=== PATIENT | female | born 1975 | race American Indian/Alaskan Native ===

== ENCOUNTER 2016-12-05 14:16 | Outpatient (CLI) | payer OTHER ==
--- NOTE | 2016-12-05 15:28 | Mammography Report ---
Bilateral mammogram: No previous studies available. CAD study utilized. Findings: Focal dense asymmetry noted in the upper right breast and outer left breast. No microcalcification is seen. No distinct mass is noted. Benign axillary nodes. Impression: Focal asymmetry right and left breast. Comparison with previous studies is recommended. If previous studies are not available spot mag and sonographic examination advised. BI-RADS CATEGORY: 0 = Needs additional imaging evaluation ACR BI-RADS MAMMOGRAPHIC CODES: 0 = Needs additional imaging evaluation; 1 = Negative; 2 = Benign; 3 = Probably benign; 4 = Suspicious; 5 = Malignant; 6 = Known biopsy-proven malignancy COMMENT: 1. Dense breast tissue, i.e., adenosis, fibrocystic changes, etc., may obscure an underlying neoplasm. 2. Approximately 10% of cancers are not detected with mammography. 3. A negative mammography report should not delay biopsy if a clinically suspicious mass is present. COMMENT: Patient follow-up letters are generated in [employer]. A
== END 2016-12-05 14:17 | disposition home or self-care (01) ==
LOC: MERGE 14:16 → MAMMO 14:16
PROVIDERS: ATTEND Hospitalist
DX: Z12.31 Encounter for screening mammogram for malignant neoplasm of breast (principal)
CPT/HCPCS: 77067; G0202

== ENCOUNTER 2017-01-18 13:11 | Outpatient (CLI) | payer OTHER ==
--- NOTE | 2017-01-18 14:24 | Mammography Report ---
Spot compression magnification and sonogram of focal asymmetry upper anterior right breast and mid outer left breast: Findings: There is persistence of asymmetry noted at the right and left breast however no discrete mass or microcalcification seen. Sonographic examination reveals no cystic or solid mass. Impression: Benign findings. Annual followup with mammogram recommended. BI-RADS CATEGORY: 2 = Benign ACR BI-RADS MAMMOGRAPHIC CODES: 0 = Needs additional imaging evaluation; 1 = Negative; 2 = Benign; 3 = Probably benign; 4 = Suspicious; 5 = Malignant; 6 = Known biopsy-proven malignancy COMMENT: 1. Dense breast tissue, i.e., adenosis, fibrocystic changes, etc., may obscure an underlying neoplasm. 2. Approximately 10% of cancers are not detected with mammography. 3. A negative mammography report should not delay biopsy if a clinically suspicious mass is present. COMMENT: Patient follow-up letters are generated in [employer].
== END 2017-01-18 13:12 | disposition home or self-care (01) ==
LOC: MAMMO 13:11
PROVIDERS: ATTEND Hospitalist
DX: R92.8 Other abnormal and inconclusive findings on diagnostic imaging of breast (principal)
CPT/HCPCS: 76642; G0204; 77066

== ENCOUNTER 2017-03-08 09:48 | Emergency (ER) | payer OTHER ==
[2017-03-08 10:25] LABS: Basophils % (Auto) 0.8 % (0.0-1.8); Hematocrit 34.9 % (30.3-42.9); Hemoglobin 10.8 gm/dl (10.1-14.3); Mean Corpuscular HGB Conc 31 % (30-34); Mean Corpuscular Hemoglobin 22 pg (28-32); Mean Corpuscular Volume 71 fl (79-97); Platelet Count 305 K/mm3 (140-440); Red Blood Count 4.95 M/mm3 (3.65-5.03); Red Cell Distribution Width 18.4 % (13.2-15.2)
[2017-03-08 10:43] LABS: Anion Gap 15 mmol/L; BUN/Creatinine Ratio 11.66; Blood Urea Nitrogen 7 mg/dL (7-17); Calcium 8.7 mg/dL (8.4-10.2); Carbon Dioxide 24 mmol/L (22-30); Chloride 101.2 mmol/L (98-107); Glucose 107 mg/dL (65-100); Potassium 3.5 mmol/L (3.6-5.0); Sodium 137 mmol/L (137-145)
--- NOTE | 2017-03-08 15:39 | Emergency Department Report ---
ED General Adult HPI - General Chief complaint: Chest Pain Stated complaint: CHEST PAIN Time Seen by Provider: 03/08/17 15:13 Source: patient, RN notes reviewed, old records reviewed Mode of arrival: Ambulatory Limitations: No Limitations - History of Present Illness Initial comments: This is a 41-year-old female. She is previously unknown to me. Her primary care doctor is Dr. Bryant. She has a follow-up appointment this Sunday, at 2:00 PM, with [place] [facility]. The patient is currently being worked up for nonspecific renal mass demonstrated on MRI in 2016, she supposed to have a biopsy next week at [place] , it may be renal cell carcinoma. Patient does not know. The patient presents to the ER with left-sided chest wall pressure. The pressure has been present intermittently since November. It does not radiate to the back, arms or neck. There is no diaphoresis. There is no vomiting, but the patient describes intermittent nausea. The patient describes chronic shortness of breath since November. There is no leg pain. There is no leg swelling. No recent trips greater than 4 hours. No recent hospital admissions. Patient reports onset of palpitations intermittently since Sunday. These are intermittent. Have no exacerbating or relieving factors. Patient indicates that her symptoms have no other exacerbating or relieving factors. -: Gradual Location: chest Severity scale (0 -10): 7 Consistency: intermittent Improves with: none Worsens with: none Associated Symptoms: chest pain, shortness of breath - Related Data Home Medications Medication Instructions Recorded Confirmed Last Taken ALBUTEROL Inhaler [ProAir HFA 2 inhalation PO PRN PRN 03/08/17 03/08/17 Unknown Inhaler] Fluticasone/Vilanterol [Breo 2 inhalation PO PRN PRN 03/08/17 03/08/17 Unknown Ellipta 100-25 Mcg INH] Allergies Allergy/AdvReac Type Severity Reaction Status Date / Time No Known Allergies Allergy Verified 10/15/16 06:09 ED Review of Systems ROS: Stated complaint: CHEST PAIN Other details as noted in HPI Constitutional: denies: fever Eyes: denies: vision change ENT: denies: congestion Respiratory: shortness of breath Cardiovascular: chest pain Gastrointestinal: denies: abdominal pain Genitourinary: as per HPI Musculoskeletal: as per HPI Skin: denies: lesions Neurological: denies: weakness Psychiatric: anxiety ED Past Medical Hx - Past Medical History Additional medical history: Cyst on Kidney - Surgical History Past Surgical History?: No - Social History Smoking Status: Never Smoker Substance Use Type: Alcohol - Medications Home Medications: Home Medications Medication Instructions Recorded Confirmed Last Taken Type ALBUTEROL Inhaler [ProAir HFA 2 inhalation PO PRN PRN 03/08/17 03/08/17 Unknown History Inhaler] Fluticasone/Vilanterol [Breo 2 inhalation PO PRN PRN 03/08/17 03/08/17 Unknown History Ellipta 100-25 Mcg INH] ED Physical Exam - General Limitations: No Limitations General appearance: alert, in no apparent distress, anxious - Head Head exam: Present: atraumatic, normocephalic - Eye Eye exam: Present: normal appearance, PERRL, EOMI. Absent: nystagmus - ENT ENT exam: Present: normal exam, normal orophraynx, mucous membranes moist, normal external ear exam - Neck Neck exam: Present: normal inspection, full ROM. Absent: tenderness, meningismus - Respiratory Respiratory exam: Present: normal lung sounds bilaterally, chest wall tenderness (there is mild left lateral chest wall tenderness, with bilateral breast exam unremarkable. During the breast examination, I am escorted by nurse Leo Corrales. There is no redness, pus, streaking or crepitus.), other. Absent: respiratory distress, wheezes, rales, rhonchi, stridor, accessory muscle use, decreased breath sounds, prolonged expiratory - Cardiovascular Cardiovascular Exam: Present: regular rate, normal rhythm, normal heart sounds. Absent: bradycardia, tachycardia, irregular rhythm, systolic murmur, diastolic murmur, rubs, gallop - GI/Abdominal GI/Abdominal exam: Present: soft, normal bowel sounds. Absent: distended, tenderness, guarding, rebound, rigid, pulsatile mass - Extremities Exam Extremities exam: Present: normal inspection, full ROM, normal capillary refill. Absent: tenderness, pedal edema, joint swelling, calf tenderness - Back Exam Back exam: Present: normal inspection, full ROM. Absent: tenderness, CVA tenderness (R), CVA tenderness (L), muscle spasm, paraspinal tenderness, vertebral tenderness - Neurological Exam Neurological exam: Present: alert, oriented X3, normal gait, other (Extraocular movements intact. Tongue midline. No facial droop. Facial sensation intact to light touch in the V1, V2, V3 distribution bilaterally. 5 and 5 strength in 4 extremities.. Sensation is intact to light touch in 4 extremities.). Absent : motor sensory deficit - Psychiatric Psychiatric exam: Present: normal affect, normal mood - Skin Skin exam: Present: warm, dry, intact, normal color. Absent: rash ED Course Vital Signs 03/08/17 03/08/17 03/08/17 10:06 13:54 14:04 Temperature 98.2 F Pulse Rate 76 81 Respiratory 18 12 Rate Blood Pressure 138/89 144/92 Blood Pressure [Left] O2 Sat by Pulse 100 99 65 L Oximetry 03/08/17 03/08/17 03/08/17 14:10 14:20 14:27 Temperature 98.1 F Pulse Rate 84 86 90 Respiratory 22 24 24 Rate Blood Pressure 144/92 137/88 Blood Pressure 137/88 [Left] O2 Sat by Pulse 100 99 100 Oximetry 03/08/17 03/08/17 03/08/17 14:28 14:30 14:40 Temperature Pulse Rate 97 H 81 Respiratory 16 20 18 Rate Blood Pressure 134/66 134/66 Blood Pressure [Left] O2 Sat by Pulse 100 99 97 Oximetry 03/08/17 03/08/17 03/08/17 14:50 15:00 15:10 Temperature Pulse Rate 108 H 84 79 Respiratory 16 17 17 Rate Blood Pressure 131/81 133/77 133/77 Blood Pressure [Left] O2 Sat by Pulse 98 98 99 Oximetry 03/08/17 03/08/17 03/08/17 15:20 15:30 15:40 Temperature Pulse Rate 78 93 H Respiratory 18 41 H 18 Rate Blood Pressure 127/77 152/94 152/94 Blood Pressure [Left] O2 Sat by Pulse 99 99 98 Oximetry 03/08/17 03/08/17 03/08/17 15:50 16:00 16:10 Temperature Pulse Rate Respiratory 19 20 19 Rate Blood Pressure 152/94 118/75 118/75 Blood Pressure [Left] O2 Sat by Pulse 98 98 97 Oximetry 03/08/17 03/08/17 03/08/17 16:20 16:30 16:40 Temperature Pulse Rate Respiratory 16 23 18 Rate Blood Pressure 120/75 112/71 112/71 Blood Pressure [Left] O2 Sat by Pulse 99 99 99 Oximetry 03/08/17 03/08/1717 16:50 17:00 17:19 Temperature Pulse Rate 92 H Respiratory 18 13 Rate Blood Pressure 117/73 114/75 114/75 Blood Pressure [Left] O2 Sat by Pulse 99 98 Oximetry 03/08/17 03/08/17 03/08/17 17:20 17:30 17:58 Temperature Pulse Rate 97 H 89 98 H Respiratory 25 H 28 H 11 L Rate Blood Pressure 114/75 114/75 114/75 Blood Pressure [Left] O2 Sat by Pulse 100 94 100 Oximetry 03/08/17 03/08/17 03/08/17 18:00 18:10 18:20 Temperature Pulse Rate 96 H 124 H Respiratory 17 18 20 Rate Blood Pressure 114/75 140/72 114/75 Blood Pressure [Left] O2 Sat by Pulse 99 98 93 Oximetry 03/08/17 18:35 Temperature Pulse Rate 95 H Respiratory 22 Rate Blood Pressure Blood Pressure 140/72 [Left] O2 Sat by Pulse 99 Oximetry - Reevaluation(s) Reevaluation #1: 03/08/17 15:43 Differential diagnosis: Costochondritis, pneumonia, acute coronary syndrome, pulmonary embolus, anxiety Assessment and plan: 41-year-old female with atypical chest pain, palpitations. May have renal cell carcinoma, a tissue diagnosis is pending. The patient is low risk by ADE score, low risk by heart score, troponins are negative 2. EKG is abnormal, today's EKG is essentially unchanged from prior EKG. The patient has follow-up with a senior net web developer next week. I find the patient to be low risk by well's criteria, a d-dimer sent to risk stratify the patient for pulmonary embolus. X-ray of the chest is ordered. The test is ordered. Reevaluation #2: 03/08/17 18:27 CT scan of the chest is negative. Patient reassessed. Resting comfortably. Has cardiology follow-up with an appropriate timeframe. Symptoms are subacute to chronic. She is suitable for discharge at this time, she is instructed to follow up with outpatient cardiology next week. Reevaluation #3: 03/08/17 18:38 The patient reports that her drying room supervisor, Dr. Silva is aware of the granulomatous disease and she is currently being worked up on outpatient basis for sarcoid. ED Medical Decision Making - Lab Data Result diagrams: 03/08/17 10:14 03/08/17 10:14 Vital Signs 03/08/17 03/08/17 03/08/17 10:06 14:27 14:28 Temperature 98.2 F 98.1 F Pulse Rate 76 90 Respiratory 18 24 16 Rate Blood Pressure 138/89 Blood Pressure 137/88 [Left] O2 Sat by Pulse 100 100 100 Oximetry Labs 03/08/17 03/08/17 03/08/17 10:14 10:14 13:10 WBC 8.0 RBC 4.95 Hgb 10.8 Hct 34.9 MCV 71 L MCH 22 L MCHC 31 RDW 18.4 H Plt Count 305 Lymph % (Auto) 24.4 Calhoun % (Auto) 5.6 Eos % (Auto) 1.0 Baso % (Auto) 0.8 Lymph # 2.0 Calhoun # 0.4 Eos # 0.1 Baso # 0.1 Seg Neutrophils % 68.2 Seg Neutrophils # 5.5 Sodium 137 Potassium 3.5 L Chloride 101.2 Carbon Dioxide 24 Anion Gap 15 BUN 7 Creatinine 0.6 L Estimated GFR > 60 BUN/Creatinine Ratio 11.66 Glucose 107 H Calcium 8.7 Troponin T < 0.010 < 0.010 - EKG Data -: EKG Interpreted by Ok EKG shows normal: sinus rhythm Rate: normal - EKG Data When compared to previous EKG there are: no significant change 03/08/17 15:44 EKG #1: Normal sinus, 82 bpm, QTC 427 ms, normal axis, normal intervals, poor r wave progression, borderline left ventricular hypertrophy, appears essentially unchanged from prior EKG from October 2016. EKG #2 demonstrates normal sinus, 79 beats per minute, left ventricular hypertrophy, left axis deviation, persistent poor r wave progression. Not consistent with STEMI. 03/08/17 15:46 - Radiology Data Radiology results: pending, report reviewed, image reviewed CT scan of the chest is negative. X-ray of the chest is negative. Incidental granulomatous disease is noted. Critical care attestation.: If time is entered above; I have spent that time in minutes in the direct care of this critically ill patient, excluding procedure time. ED Disposition Clinical Impression: Chest pain, Abnormal EKG Disposition: DISCHARGED TO HOME OR SELFCARE Is pt being admited?: No Does the pt Need Aspirin: No Condition: Stable Instructions: Chest Pain (ED) Additional Instructions: Continue current outpatient prescription medications. Follow-up with your cardiology appointment next week as scheduled. I have listed to the local cardiologists that particular group for your convenience. Return to the ER right away with new pain, worsened pain, migration of pain, fevers or chills, intractable nausea or vomiting, inability to tolerate liquid feeds. Laboratory studies were unremarkable, EKG was unchanged from prior EKG, CT scan of the chest did not show blood clot in the lungs, collapsed lung or pneumonia. Old granulomas are noted, this can be followed up by her primary care doctor. Referrals: PRIMARY MD BELTRAN [Primary Care Provider] - 3-5 Days ONUR BRAXTON MD [Staff Physician] - 3-5 Days SAE LUO MD [Staff Physician] - 3-5 Days
[2017-03-08 16:14] LABS: Partial Thromboplastin Time 29.7 Sec. (24.2-36.6)
[2017-03-08] MEDS ORDERED: TORADOL IV ONE (17:12)
[2017-03-08] MEDS ORDERED: NACL 0.9% 1000 ML 1,000 ML IV ONE (17:12)
[2017-03-08] MEDS ORDERED: NACL ONE (17:18)
--- NOTE | 2017-03-08 18:09 | Cat Scan Report ---
FINAL REPORT PROCEDURE: CT angiography of the chest TECHNIQUE: Computerized tomographic angiography of the chest was performed during the IV injection of iodinated nonionic contrast including image processing. The image data was postprocessed using 2-dimensional multiplanar reformatted (MPR) and 3-dimensional (MIP and/or volume rendered) techniques. HISTORY: Chest pain. Short of breath. Evaluate pulmonary embolus COMPARISON: No prior studies are available for comparison. FINDINGS: Pulmonary outflow tract, right and left main pulmonary arteries and their proximal branches: Clear, no filling defects seen to suggest pulmonary embolus. Pericardium: No evidence of pericardial effusion. Thoracic aorta: No evidence of aneurysmal dilatation or dissection. Coronary arteries: Are unremarkable. Mediastinum and hilar regions: Nonspecific subcentimeter lymph nodes are visualized. No pathologically enlarged lymph nodes or masses are identified. Lung Mancini: Small calcified granuloma is seen anteriorly inferiorly in the right lower lobe. Lungs otherwise are clear. Upper abdomen: Minimal diverticulosis seen in the hepatic flexure. Visualized bowel loops otherwise are unremarkable. Other: No acute bony abnormalities are identified. IMPRESSION: No evidence of pulmonary embolus. Prior granulomatous disease. Colonic diverticulosis as described. No other abnormalities are seen.
[2017-03-08 18:51] VITALS: BP 140/92
--- NOTE | 2017-03-09 07:20 | XRay Report ---
Chest 2 views: History: Chest pain. Findings: Normal cardiomediastinal silhouette. Trachea is midline. No consolidation, pneumothorax or pleural effusion. Impression: No acute cardiopulmonary findings.
== END 2017-03-08 19:12 | disposition home or self-care (01) ==
LOC: ED 09:48
DX: R07.89 Other chest pain (principal); R94.31 Abnormal electrocardiogram [ECG] [EKG]
CPT/HCPCS: 36415; 71020; 71275; 80048; 84484; 84702; 85025; 85379; 85610; 85730; 93005; 93010; 96361; 96374; 99285; J1885; J7030; Q9967

== ENCOUNTER 2017-05-13 14:47 | Emergency (ER) | payer OTHER ==
[2017-05-13 15:07] VITALS: BP 139/91
[2017-05-13 15:31] LABS: Basophils % (Auto) 0.6 % (0.0-1.8); Eosinophils % (Auto) 0.1 % (0.0-4.3); Hematocrit 38.3 % (30.3-42.9); Mean Corpuscular HGB Conc 31 % (30-34); Mean Corpuscular Volume 71 fl (79-97); Platelet Count 346 K/mm3 (140-440); Red Blood Count 5.38 M/mm3 (3.65-5.03); Red Cell Distribution Width 19.7 % (13.2-15.2); White Blood Count 9.4 K/mm3 (4.5-11.0)
[2017-05-13 15:35] LABS: Mean Corpuscular Hemoglobin 22 pg (28-32)
[2017-05-13 15:43] LABS: Anion Gap 17 mmol/L; Blood Urea Nitrogen 7 mg/dL (7-17); Calcium 8.8 mg/dL (8.4-10.2); Carbon Dioxide 24 mmol/L (22-30); Chloride 101.5 mmol/L (98-107); Glucose 107 mg/dL (65-100); Potassium 3.8 mmol/L (3.6-5.0); Sodium 139 mmol/L (137-145)
[2017-05-13 15:55] LABS: Bacteria,Urine 1+ /HPF (Negative); Bilirubin,Urine NEG (Negative); Blood,Urine NEG (Negative); Ketones,Urine NEG (Negative); Leukocyte Esterase,Urine NEG (Negative); Mucus,Urine FEW /HPF; Nitrite,Urine NEG (Negative); Protein,Urine <15 mg/dL mg/dL (Negative); Urobilinogen,Urine < 2.0 mg/dL (<2.0)
--- NOTE | 2017-05-13 16:52 | Cat Scan Report ---
FINAL REPORT PROCEDURE: CT ABDOMEN PELVIS WO CON TECHNIQUE: Computerized axial tomography of the abdomen and pelvis was performed without intravenous contrast. This study is performed without intravascular contrast material and its sensitivity for abdominal and pelvic pathology, including neoplasms, inflammation, abscess, free fluid, thrombosis, arterial dissection and infarction, is reduced compared with a contrast enhanced study. HISTORY: LEFT FLANK PAIN ; POSSIBLE STONE COMPARISON: No prior studies are available for comparison. FINDINGS: Visualized lower thorax: No significant abnormality. Liver: Mild diffuse low attenuation of the liver suggests fatty infiltration. Spleen: Normal size and attenuation. Gallbladder and biliary system: Normal. Pancreas: Normal. Adrenals: Normal. Kidneys: No hydronephrosis or renal calculi are seen. Along the course of the distal left ureter there is a focal calcification which is favored to be related to a phlebolith, as no proximal obstruction is noted. There are mild asymmetric left perinephric strandy changes. Cannot exclude inflammations/pyelonephritis.. GI tract: The appendix is visualized and does not appear inflamed. No evidence of bowel obstruction or acute inflammation. Lymph nodes and mesentery: Normal. Vasculature: Normal. Bladder: Normal. Reproductive organs: Within the right pelvis there is a circumscribed low-density structure which is likely related to a multi-septated cyst. This measures 5.0 x 3.1 x 3.3 centimeters. Peritoneum: Trace free fluid in the pelvis is likely physiologic. Musculoskeletal structures: Degenerative disc changes of the lower lumbar spine. Other: None. IMPRESSION: Asymmetric left perinephric strandy changes may be related to inflammation/pyelonephritis. No hydronephrosis bilaterally. No renal calculi are seen. Calcifications in the pelvis are favored to be related to phleboliths rather than ureteral calculi, as there is no proximal ureteral dilatation. Complex 5 centimeter cystic lesion in the right pelvis is likely related to the right ovary. Recommend follow-up.
[2017-05-13] MEDS ORDERED: LEVAQUIN PO ONE (21:00)
[2017-05-13] MEDS ORDERED: TORADOL IM ONE (21:00)
--- NOTE | 2017-05-13 21:01 | Emergency Department Report ---
ED Abdominal Pain HPI - General Chief Complaint: Abdominal Pain Stated Complaint: BACK PAIN/KIDNEY AREA Time Seen by Provider: 05/13/17 20:54 Source: patient Mode of arrival: Ambulatory Limitations: No Limitations - History of Present Illness Initial Comments: 41-year-old female with past medical history sarcoid presenting to the ED complaining of left sided flank pain. Onset of symptoms started 2 days prior. Patient states she was exercising prior to onset of pain. Patient states pain is located left flank area and nonradiating, no relaxing or worsening factors. Patient denies: Fever/chills, chest pain, cough, nausea/vomiting/diarrhea, urinary symptoms. Pt admits she did have a kidney stone ablation in March 2017 MD Complaint: flank pain -: Gradual, days(s) (2) Location: L flank Radiation: none Migration to: no migration Severity scale (0 -10): 6 Quality: cramping Consistency: intermittent Improves With: nothing Worsens With: nothing Associated Symptoms: denies other symptoms. denies: nausea, vomiting, diarrhea , constipation, dysuria, hematemesis, melena, hematuria, anorexia - Related Data Home Medications Medication Instructions Recorded Confirmed Last Taken ALBUTEROL Inhaler [ProAir HFA 2 inhalation PO PRN PRN 03/08/17 05/13/17 Unknown Inhaler] Fluticasone/Vilanterol [Breo 2 inhalation PO PRN PRN 03/08/17 05/13/17 Unknown Ellipta 100-25 Mcg INH] predniSONE [Deltasone] 5 mg PO Q48HR 05/13/17 05/13/17 05/13/17 08:00 Previous Rx's Medication Instructions Recorded Last Taken Type Ciprofloxacin HCl [Ciprofloxacin 500 mg PO Q12HR #20 tab 05/13/17 Unknown Rx TAB] Cyclobenzaprine [Flexeril] 10 mg PO TID PRN #15 tablet 05/13/17 Unknown Rx Ibuprofen [Motrin 800 MG tab] 800 mg PO Q8HR PRN #30 tablet 05/13/17 Unknown Rx Allergies Allergy/AdvReac Type Severity Reaction Status Date / Time No Known Allergies Allergy Verified 05/13/17 14:57 ED Review of Systems ROS: Stated complaint: BACK PAIN/KIDNEY AREA Other details as noted in HPI Constitutional: denies: chills, fever Eyes: denies: eye pain, eye discharge, vision change ENT: denies: ear pain, throat pain Respiratory: denies: cough, shortness of breath, wheezing Cardiovascular: denies: chest pain, palpitations Endocrine: no symptoms reported Gastrointestinal: denies: abdominal pain, nausea, diarrhea Genitourinary: denies: urgency, dysuria, discharge Musculoskeletal: denies: back pain, joint swelling, arthralgia Skin: denies: rash, lesions Neurological: denies: headache, weakness, paresthesias Psychiatric: denies: anxiety, depression Hematological/Lymphatic: denies: easy bleeding, easy bruising ED Past Medical Hx - Past Medical History Hx Congestive Heart Failure: No Hx Diabetes: No Hx Asthma: No Hx COPD: No Additional medical history: Cyst on Kidney. SARCOIDOSIS - Surgical History Additional Surgical History: ABLATION LEFT KIDNEY March - Social History Smoking Status: Never Smoker Substance Use Type: None - Medications Home Medications: Home Medications Medication Instructions Recorded Confirmed Last Taken Type ALBUTEROL Inhaler [ProAir HFA 2 inhalation PO PRN PRN 03/08/17 05/13/17 Unknown History Inhaler] Fluticasone/Vilanterol [Breo 2 inhalation PO PRN PRN 03/08/17 05/13/17 Unknown History Ellipta 100-25 Mcg INH] Ciprofloxacin HCl [Ciprofloxacin 500 mg PO Q12HR #20 tab 05/13/17 Unknown Rx TAB] Cyclobenzaprine [Flexeril] 10 mg PO TID PRN #15 tablet 05/13/17 Unknown Rx Ibuprofen [Motrin 800 MG tab] 800 mg PO Q8HR PRN #30 tablet 05/13/17 Unknown Rx predniSONE [Deltasone] 5 mg PO Q48HR 05/13/17 05/13/17 05/13/17 08:00 History ED Physical Exam - General Limitations: No Limitations General appearance: alert, in no apparent distress - Head Head exam: Present: atraumatic, normocephalic - Eye Eye exam: Present: normal appearance - ENT ENT exam: Present: mucous membranes moist - Neck Neck exam: Present: normal inspection - Respiratory Respiratory exam: Present: normal lung sounds bilaterally. Absent: respiratory distress - Cardiovascular Cardiovascular Exam: Present: regular rate, normal rhythm. Absent: systolic murmur, diastolic murmur, rubs, gallop - GI/Abdominal GI/Abdominal exam: Present: soft, normal bowel sounds - Extremities Exam Extremities exam: Present: normal inspection - Back Exam Back exam: Present: normal inspection - Neurological Exam Neurological exam: Present: alert, oriented X3 - Psychiatric Psychiatric exam: Present: normal affect, normal mood - Skin Skin exam: Present: warm, dry, intact, normal color. Absent: rash ED Course Vital Signs 05/13/17 15:01 Temperature 98.9 F Pulse Rate 85 Respiratory 18 Rate Blood Pressure 139/91 O2 Sat by Pulse 99 Oximetry - Reevaluation(s) Reevaluation #1: 05/13/17 21:03 pt states her pain has improved on its own while waiting in ED, she is requesting to dc home ED Medical Decision Making - Lab Data Result diagrams: 05/13/17 15:15 05/13/17 15:15 - Radiology Data Radiology results: report reviewed, image reviewed Final impression: Asymmetric left perinephritic stranding changes may be related to inflammation/pyelonephritis. No hydronephrosis bilaterally. No renal clavicular seen. Consultations and the pelvis are favored to be related to phleboliths rather than ureteral colic Opal, as there is no proximal ureteral dilatation. Complex 5 cm cystic lesion in the right pelvis is likely related to the right ovary recommend follow-up. Dr. Dwayne Ji - Medical Decision Making 40-year-old female with past medical history presented to the ED complaining of left flank pain. My suspicion for flank pain but secondary to muscular strain. However I will cover with cipro and have her follow up with PCP. pt given a sample of CT so that she may follow up with Urology and NUCLEAR SCIENTIST - Differential Diagnosis ectopic pregnany, kidney stone, ovarian cyst, ovarian torsion Critical care attestation.: If time is entered above; I have spent that time in minutes in the direct care of this critically ill patient, excluding procedure time. ED Disposition Clinical Impression: Left flank pain Disposition: DC-01 TO HOME OR SELFCARE Is pt being admited?: No Does the pt Need Aspirin: No Condition: Stable Instructions: Abdominal Pain (ED) Prescriptions: Ciprofloxacin HCl [Ciprofloxacin TAB] 500 mg PO Q12HR #20 tab Cyclobenzaprine [Flexeril] 10 mg PO TID PRN #15 tablet PRN Reason: Muscle Spasm Ibuprofen [Motrin 800 MG tab] 800 mg PO Q8HR PRN #30 tablet PRN Reason: Pain , Severe (7-10) Referrals: PRIMARY CARE, [Primary Care Provider] - 3-5 Days OXANA HURLEY DO [Staff Physician] - 3-5 Days ROBERT BOCANEGRA MD [Referring] - 24 Hours Forms: Work/School Release Form(ED)
== END 2017-05-13 21:31 | disposition home or self-care (01) ==
LOC: ED 14:47
DX: R10.9 Unspecified abdominal pain (principal); D86.9 Sarcoidosis, unspecified
CPT/HCPCS: 36415; 74176; 80048; 81001; 84703; 85025; 96372; 99284; J1885

== ENCOUNTER 2017-05-25 21:28 | Emergency (ER) | payer OTHER ==
[2017-05-25 22:20] LABS: Basophils % (Auto) 0.2 % (0.0-1.8); Hematocrit 37.3 % (30.3-42.9); Hemoglobin 11.6 gm/dl (10.1-14.3); Mean Corpuscular HGB Conc 31 % (30-34); Mean Corpuscular Volume 72 fl (79-97); Platelet Count 301 K/mm3 (140-440); Red Blood Count 5.18 M/mm3 (3.65-5.03); Red Cell Distribution Width 19.5 % (13.2-15.2); White Blood Count 16.9 K/mm3 (4.5-11.0)
[2017-05-25 22:25] LABS: Mean Corpuscular Hemoglobin 22 pg (28-32)
[2017-05-25 22:28] LABS: BUN/Creatinine Ratio 10.83; Calcium 8.8 mg/dL (8.4-10.2); Potassium 3.9 mmol/L (3.6-5.0)
[2017-05-26 00:55] LABS: Bacteria,Urine 1+ /HPF (Negative); Bilirubin,Urine NEG (Negative); Blood,Urine SM (Negative); Ketones,Urine TR mg/dL (Negative); Leukocyte Esterase,Urine SM (Negative); Mucus,Urine FEW /HPF; Nitrite,Urine NEG (Negative); Urobilinogen,Urine < 2.0 mg/dL (<2.0)
[2017-05-26] MEDS ORDERED: NACL 0.9% 1000 ML 1,000 ML IV ONE (07:41)
[2017-05-26] MEDS ORDERED: MORPHINE IV ONE (07:41)
[2017-05-26] MEDS ORDERED: LEVAQUIN 750MG/150ML 750 MG/150 ML BAG IV ONE (07:41)
[2017-05-26] MEDS ORDERED: ZOFRAN IV ONE (07:41)
--- NOTE | 2017-05-26 07:46 | Emergency Department Report ---
ED Abdominal Pain HPI - General Chief Complaint: Abdominal Pain Stated Complaint: CP/VOMITING Time Seen by Provider: 05/26/17 07:31 Source: patient Mode of arrival: Ambulatory Limitations: No Limitations - History of Present Illness Initial Comments: PATIENT WAS SEEN HERE TWO WEEKS AGO DIAGNOSED WITH UTI , SHE STATED THAT SHE FELT MUCH BETTER AFTER CIPRO BUT HER SYMPTOMS RETURN Complaint: flank pain -: days(s) Location: L flank Severity scale (0 -10): 7 Improves With: vomiting Associated Symptoms: nausea, vomiting. denies: diarrhea, dysuria - Related Data Home Medications Medication Instructions Recorded Confirmed Last Taken ALBUTEROL Inhaler [ProAir HFA 2 inhalation PO PRN PRN 03/08/17 05/13/17 Unknown Inhaler] Fluticasone/Vilanterol [Breo 2 inhalation PO PRN PRN 03/08/17 05/13/17 Unknown Ellipta 100-25 Mcg INH] predniSONE [Deltasone] 5 mg PO Q48HR 05/13/17 05/13/17 05/13/17 08:00 Previous Rx's Medication Instructions Recorded Last Taken Type Ciprofloxacin HCl [Ciprofloxacin 500 mg PO Q12HR #20 tab 05/13/17 Unknown Rx TAB] Cyclobenzaprine [Flexeril] 10 mg PO TID PRN #15 tablet 05/13/17 Unknown Rx Ibuprofen [Motrin 800 MG tab] 800 mg PO Q8HR PRN #30 tablet 05/13/17 Unknown Rx Levofloxacin [Levaquin TAB] 500 mg PO QDAY #7 tablet 05/26/17 Unknown Rx Ondansetron [Zofran Odt] 4 mg PO Q8HR PRN #14 tab.rapdis 05/26/17 Unknown Rx traMADol [Ultram] 50 mg PO Q6HR PRN #14 tablet 05/26/17 Unknown Rx Allergies Allergy/AdvReac Type Severity Reaction Status Date / Time No Known Allergies Allergy Verified 05/13/17 14:57 ED Review of Systems ROS: Stated complaint: CP/VOMITING Other details as noted in HPI Comment: All other systems reviewed and negative Constitutional: denies: chills, fever Respiratory: denies: cough, SOB with exertion Cardiovascular: denies: chest pain, palpitations Endocrine: denies: excessive sweating Gastrointestinal: abdominal pain, nausea, vomiting Skin: denies: rash Neurological: denies: headache, weakness ED Past Medical Hx - Past Medical History Previous Medical History?: Yes Hx Congestive Heart Failure: No Hx Diabetes: No Hx Asthma: No Hx COPD: No Additional medical history: Cyst on Kidney. SARCOIDOSIS - Surgical History Past Surgical History?: Yes Additional Surgical History: ABLATION LEFT KIDNEY March - Social History Smoking Status: Never Smoker Substance Use Type: None - Medications Home Medications: Home Medications Medication Instructions Recorded Confirmed Last Taken Type ALBUTEROL Inhaler [ProAir HFA 2 inhalation PO PRN PRN 03/08/17 05/13/17 Unknown History Inhaler] Fluticasone/Vilanterol [Breo 2 inhalation PO PRN PRN 03/08/17 05/13/17 Unknown History Ellipta 100-25 Mcg INH] Ciprofloxacin HCl [Ciprofloxacin 500 mg PO Q12HR #20 tab 05/13/17 Unknown Rx TAB] Cyclobenzaprine [Flexeril] 10 mg PO TID PRN #15 tablet 05/13/17 Unknown Rx Ibuprofen [Motrin 800 MG tab] 800 mg PO Q8HR PRN #30 tablet 05/13/17 Unknown Rx predniSONE [Deltasone] 5 mg PO Q48HR 05/13/17 05/13/17 05/13/17 08:00 History Levofloxacin [Levaquin TAB] 500 mg PO QDAY #7 tablet 05/26/17 Unknown Rx Ondansetron [Zofran Odt] 4 mg PO Q8HR PRN #14 tab.rapdis 05/26/17 Unknown Rx traMADol [Ultram] 50 mg PO Q6HR PRN #14 tablet 05/26/17 Unknown Rx ED Physical Exam - General Limitations: No Limitations General appearance: alert, in no apparent distress - Head Head exam: Present: normocephalic - Neck Neck exam: Present: normal inspection - Respiratory Respiratory exam: Present: normal lung sounds bilaterally. Absent: wheezes, rales, rhonchi - Cardiovascular Cardiovascular Exam: Present: regular rate, normal heart sounds - GI/Abdominal GI/Abdominal exam: Present: soft. Absent: distended, tenderness, guarding, rebound, mass - Back Exam Back exam: Present: CVA tenderness (L) - Neurological Exam Neurological exam: Present: alert, oriented X3, CN II-XII intact - Skin Skin exam: Present: warm, dry, intact ED Course Vital Signs 05/25/17 05/26/17 21:41 08:28 Temperature 97.8 F Pulse Rate 87 Respiratory 18 20 Rate Blood Pressure 120/78 O2 Sat by Pulse 100 Oximetry ED Medical Decision Making - Lab Data Result diagrams: 05/25/17 21:54 05/25/17 21:54 - Medical Decision Making PATIENT STATED THAT SHE HAS AN APPOINTMENT WITH HER UROLOGIST NEXT WEEK AND SHE DOESN;T WANT ANY IMAGING TODAY. SHE STATED THAT SHE FEEL MUCH BETTER NOW. Critical care attestation.: If time is entered above; I have spent that time in minutes in the direct care of this critically ill patient, excluding procedure time. ED Disposition Clinical Impression: Left flank pain, Left renal mass Disposition: TO HOME OR SELFCARE Is pt being admited?: No Does the pt Need Aspirin: No Condition: Stable Instructions: Abdominal Pain (ED) Prescriptions: Levofloxacin [Levaquin TAB] 500 mg PO QDAY #7 tablet Ondansetron [Zofran Odt] 4 mg PO Q8HR PRN #14 tab.rapdis PRN Reason: Vomiting traMADol [Ultram] 50 mg PO Q6HR PRN #14 tablet PRN Reason: Pain Referrals: ANIVAL VICTORIA MD [Primary Care Provider] - 3-5 Days
[2017-05-26] MEDS ORDERED: ULTRAM PO ONE (08:25)
[2017-05-26 10:04] VITALS: BP 115/74
== END 2017-05-26 10:05 | disposition home or self-care (01) ==
LOC: ED 21:28
DX: R10.30 Lower abdominal pain, unspecified (principal); N28.89 Other specified disorders of kidney and ureter
CPT/HCPCS: 36415; 80048; 81001; 84703; 85025; 96365; 96375; 99283; J1956; J2270; J2405; J7030

== ENCOUNTER 2017-10-18 15:18 | Outpatient (CLI) | payer OTHER ==
[2017-10-18 15:39] LABS: Basophils % (Auto) 0.6 % (0.0-1.8); Hematocrit 33.8 % (30.3-42.9); Hemoglobin 10.6 gm/dl (10.1-14.3); Mean Corpuscular HGB Conc 32 % (30-34); Mean Corpuscular Volume 74 fl (79-97); Platelet Count 318 K/mm3 (140-440); Red Blood Count 4.59 M/mm3 (3.65-5.03); Red Cell Distribution Width 16.4 % (13.2-15.2); White Blood Count 9.2 K/mm3 (4.5-11.0)
[2017-10-18 15:40] LABS: Bacteria,Urine 1+ /HPF (Negative); Bilirubin,Urine NEG (Negative); Blood,Urine SM (Negative); Ketones,Urine NEG (Negative); Leukocyte Esterase,Urine MOD (Negative); Mucus,Urine FEW /HPF; Nitrite,Urine NEG (Negative); Urobilinogen,Urine < 2.0 mg/dL (<2.0)
[2017-10-18 15:48] LABS: Mean Corpuscular Hemoglobin 23 pg (28-32)
[2017-10-18 15:55] LABS: Anion Gap 13 mmol/L; BUN/Creatinine Ratio 15; Blood Urea Nitrogen 9 mg/dL (7-17); Carbon Dioxide 27 mmol/L (22-30); Chloride 102.5 mmol/L (98-107); Glucose 105 mg/dL (65-100); Potassium 4.2 mmol/L (3.6-5.0); Sodium 138 mmol/L (137-145)
== END 2017-10-18 15:19 | disposition home or self-care (01) ==
LOC: LAB 15:18
PROVIDERS: ATTEND Internal Medicine Nephrology
DX: N28.1 Cyst of kidney, acquired (principal)
CPT/HCPCS: 36415; 80048; 81001; 82570; 84156; 85025

== ENCOUNTER 2018-05-09 11:20 | Outpatient (CLI) | payer OTHER ==
--- NOTE | 2018-05-09 12:07 | XRay Report ---
BILATERAL RIBS: History: Chest wall pain. Routine views of the rib cage demonstrate normal mineralization with no significant contour abnormalities, fractures or destructive lesions. PA view of the chest demonstrates no underlying cardiopulmonary abnormalities, fluid or pneumothorax. IMPRESSION: Unremarkable bilateral ribs.
== END 2018-05-09 11:21 | disposition home or self-care (01) ==
LOC: XRAY 11:20
PROVIDERS: ATTEND Specialist
DX: R07.89 Other chest pain (principal); I10 Essential (primary) hypertension; E66.9 Obesity, unspecified
CPT/HCPCS: 71110

== ENCOUNTER 2018-05-10 10:44 | Outpatient (CLI) | payer OTHER | END 2018-05-10 10:45 | disposition home or self-care (01) | LOC: US 10:44 | PROVIDERS: ATTEND Internal Medicine Gastroenterology | DX: K30 Functional dyspepsia (principal); R10.12 Left upper quadrant pain; D86.9 Sarcoidosis, unspecified; E66.9 Obesity, unspecified | CPT/HCPCS: 76700 ==

== ENCOUNTER 2018-06-10 13:08 | Day surgery (SDC) | payer OTHER ==
[2018-06-10] MEDS ORDERED: NACL 0.9% 1000 ML 1,000 ML IV SCH (14:00)
--- NOTE | 2018-06-10 14:22 | Anesthesia Day of Surgery ---
Anesthesia Day of Surgery - Day of Surgery Patient Examined: Yes Patient H&P Reviewed: Yes Patient is NPO: Yes
--- NOTE | 2018-06-10 14:22 | Anesthesia Consultation ---
Anesthesia Consult and Med Hx - Airway Anesthetic Teeth Evaluation: Poor ROM Head & Neck: Adequate Mental/Hyoid Distance: Adequate Mallampati Class: Class II Intubation Access Assessment: Probably Good - Pulmonary Exam CTA: Yes - Cardiac Exam Cardiac Exam: RRR - Pre-Operative Health Status ASA Pre-Surgery Classification: ASA3 Proposed Anesthetic Plan: General - Pulmonary Hx Smoking: No Hx Asthma: No SOB: Yes (Sarcoidosis-frequent inhaler usage) COPD: No Hx Pneumonia: No Hx Sleep Apnea: No - Cardiovascular System Hx Hypertension: Yes - Central Nervous System Hx Psychiatric Problems: No - Endocrine Hx End Stage Renal Disease: No - Hematic Hx Anemia: Yes - Other Systems Hx Cancer: No Hx Obesity: Yes (BMI>40)
[2018-06-10] MEDS ORDERED: PROAIR IH ONE (14:27)
[2018-06-10] MEDS ORDERED: WATER FOR IRRIG STERILE IR ONE (14:57)
--- NOTE | 2018-06-10 15:23 | Operative Report ---
Operative Report Operative Report: Date: 06/10/2018 Operative Report: Date of procedure: 06/10/2018 Procedure: Esophagogastroduodenoscopy with multiple mucosal biopsies Attending physician: Ted Mae MD Visual Basic .Net Developer: Ted Mae MD Indication: Patient is a 42-year-old female who presented with a history of epigastric pain, gerd, indigestion and heartburn. An upper endoscopy is done to assess patient so that treatment may be directed based on the findings. Consent: Informed consent was obtained after advising the patient and family regarding nature of this procedure, its indications, potential benefits as well as possible complications including but not limited to bleeding perforation and adverse reaction to medication, infection as well as other cardiopulmonary complications. An informed written and verbal consent was then obtained after due opportunity was provided for questions and answers. Monitoring: Patient was monitored continuously with pulse oximetry and electrocardiographic recordings as well as blood pressure recordings. Vital signs remained stable throughout this procedure with no untoward events. Preoperative assessment: Patient was assessed immediately prior to this procedure for capacity to tolerate monitored anesthesia care and moderate sedation as well as general anesthesia. Patient's ASA classification is 2, Mallampati class is 2, Hyomental distance is 3. Instrument: HW video endoscope Medications: Propofol given intravenously in divided doses. For details please refer to anesthesia records. Description of procedure: Patient was placed in the left lateral decubitus position after achieving sedation, the endoscope was introduced into the esophagus under direct vision. It was then advanced beyond the esophagus into the stomach and then beyond the stomach into the duodenum and to the second portion of the duodenum. It was subsequently withdrawn with careful inspection of all mucosal surfaces with the following findings. Findings: Esophagus was normal . The Z line was irregular. There was a 1-2 cm sliding hiatal hernia seen on entry into the stomach. There was mild erythema in the gastric antrum. Biopsies of the antrum were obtained for histopathology, to rule out microscopic disease. The duodenum was normal to second portion. Impression: Irregular Z line. Hiatal hernia Gastric antral erythema , Status post biopsies of the gastric antrum . Plan: Follow pathology report. Direct additional treatment based on the pathology report. Observe patient clinically and maintain antireflux measures
--- NOTE | 2018-06-10 15:24 | Discharge Summary ---
Short Stay Discharge Plan Activity: advance as tolerated Weight Bearing Status: Weight Bear as Tolerated Diet: regular Follow up with: KENAN REA MD [Primary Care Provider] - 7 Days
[2018-06-10 15:43] VITALS: BP 123/86
== END 2018-06-10 13:09 | disposition home or self-care (01) ==
LOC: GIO 13:08
PROVIDERS: ATTEND Internal Medicine Gastroenterology
DX: K21.9 Gastro-esophageal reflux disease without esophagitis (principal); I10 Essential (primary) hypertension; E66.9 Obesity, unspecified; Z68.41 Body mass index [BMI] 40.0-44.9, adult; Z98.890 Other specified postprocedural states; Z86.2 Personal history of diseases of the blood and blood-forming organs and certain disorders involving the immune mechanism; Z79.899 Other long term (current) drug therapy
CPT/HCPCS: 43239; 88305; 88342; J7030

== ENCOUNTER 2019-12-30 11:18 | Day surgery (SDC) | payer OTHER ==
[~2019-12-30 11:18] MED LIST: ceFAZolin/Water 2 GM/20 ML 2 GM/20 ML SYRINGE IV SCH
[2019-12-30] MEDS ORDERED: LIDOCAINE (1%) 10 MG/1 ML VIAL 20 ML MDV ONE ×2 (11:35→12:57)
[2019-12-30] MEDS ORDERED: BUPIVACAINE/PF (0.25%) 2.5 MG/ML 30 ML VIAL INFILTRATI ONE ×3 (11:35→13:18)
[2019-12-30] MEDS ORDERED: ONDANSETRON 4 MG/2 ML INJ IV PRN (12:06)
[2019-12-30] MEDS ORDERED: fentaNYL 100 MCG/2 ML INJ IV PRN (12:06)
--- NOTE | 2019-12-30 12:07 | Anesthesia Day of Surgery ---
Anesthesia Day of Surgery - Day of Surgery Patient Examined: Yes Patient H&P Reviewed: Yes Patient is NPO: Yes
--- NOTE | 2019-12-30 12:11 | Anesthesia Consultation ---
Anesthesia Consult and Med Hx Date of service: 12/30/19 - Airway Anesthetic Teeth Evaluation: Chipped ROM Head & Neck: Adequate Mental/Hyoid Distance: Adequate Mallampati Class: Class III Intubation Access Assessment: Probably Good - Pre-Operative Health Status ASA Pre-Surgery Classification: ASA2 Proposed Anesthetic Plan: General, MAC (MAC; GA if needed) - Pulmonary Hx Smoking: No Hx Asthma: No (States she can climb two flights of stairs) SOB: Yes (Last used inhaler 3 weeks ago. SARCOIDOSIS) COPD: No Hx Pneumonia: No Hx Sleep Apnea: No - Cardiovascular System Hx Hypertension: Yes Hx Coronary Artery Disease: No (Negative cardiac w/u 2017--->was hiatal hernia) - Central Nervous System Hx Psychiatric Problems: No - Gastrointestinal Hx Gastroesophageal Reflux Disease: Yes (Hiatal Hernia) - Endocrine Hx End Stage Renal Disease: No - Hematic Hx Anemia: Yes Hx Sickle Cell Disease: No - Other Systems Hx Alcohol Use: Yes (Occas) Hx Cancer: No Hx Obesity: Yes
[2019-12-30] MEDS ORDERED: MIDAZOLAM 2 MG/2 ML INJ ONE (12:26)
[2019-12-30] MEDS ORDERED: HYDROmorphone 1 MG/1 ML INJ ONE (12:26)
[2019-12-30] MEDS ORDERED: propofoL 200 MG/20 ML VIAL IV ONE (12:26)
[2019-12-30] MEDS ORDERED: LIDOCAINE MPF (2%) 20 MG/1 ML VIAL 5 ML ONE (12:26)
[2019-12-30] MEDS ORDERED: MIDAZOLAM 2 MG/2 ML INJ IV NR (12:40)
[2019-12-30 12:45] LABS: Hematocrit 38.9 % (30.3-42.9); Hemoglobin 13.2 gm/dl (10.1-14.3)
[2019-12-30] MEDS ORDERED: LACTATED RINGERS 1,000 ML IV SCH (13:00)
[2019-12-30] MEDS ORDERED: LIDOCAINE (1%) 10 MG/1 ML VIAL 20 ML MDV INFILTRATI ONE (13:18)
--- NOTE | 2019-12-30 13:48 | Short Stay Summary ---
Short Stay Documentation Date of service: 12/30/19 - History Principal diagnosis: soft tissue mass left lateral abdominal wall H&P: obtained from office - Allergies and Medications Current Medications: Allergies No Known Allergies Allergy (Verified 12/29/19 16:01) Home Medications Medication Instructions Recorded Confirmed Last Taken Type Albuterol Sulfate [Ventolin HFA] 2 puff IH Q4H PRN #1 pump 01/07/18 12/29/19 06/10/18 Rx Pantoprazole 40 mg PO DAILY 07/25/19 12/29/19 07/27/19 History Ferrous Sulfate [Slow Release Iron 65 mg PO DAILY 12/29/19 12/29/19 Unknown History 47.5 Mg tab] Active Medications Fentanyl (Sublimaze) 50 mcg IV Q5MIN PRN PRN Reason: Pain , Severe (7-10) Cefazolin Sodium (Ancef/Sterile Water 2 Gm/20 Ml) 2 gm in 20 mls @ 40 mls/hr IV PREOP THOMAS; Protocol Stop: 12/30/19 23:01 Lactated Ringer's (Lactated Ringers) 1,000 mls @ 125 mls/hr IV DIRECT THOMAS Midazolam HCl (Versed) 2 mg IV PREOP NR Stop: 12/30/19 23:59 Ondansetron HCl (Zofran) 4 mg IV ONCE PRN PRN Reason: Nausea And Vomiting - Brief post op/procedure progress note Date of procedure: 12/30/19 Pre-op diagnosis: left lateral abdominal wall soft tissue mass Post-op diagnosis: same Procedure: excision soft tissue mass left lateral abdominal wall Anesthesia: MAC, local Findings: 4 cm lipoma Surgeon: MELISSA ROSAS Estimated blood loss: minimal Pathology: list (soft tissue mass left lateral abdominal wall) Specimen disposition: to lab Condition: stable - Hospital course Hospital course: Pt observed in PACU and discharged in stable condition. - Disposition Condition at discharge: Good Disposition: DC-01 TO HOME OR SELFCARE Short Stay Discharge Plan Activity: no restrictions Diet: regular Wound: open to air, per your surgeon's advice Additional Instructions: SEE PRINTED DISCHARGE INSTRUCTIONS Follow up with: KENAN REA MD [Primary Care Provider] - 7 Days MELISSA ROSAS DO [Staff Physician] - 14 Days Prescriptions: Ibuprofen [Motrin 800 MG tab] 800 mg PO Q8HR PRN #30 tablet PRN Reason: Pain, Moderate (4-6) HYDROcodone/APAP 5-325 [[place] 5/325] 1 each PO Q6HR PRN #10 tablet PRN Reason: Pain , Severe (7-10)
[2019-12-30 14:18] VITALS: BP 126/73
[2019-12-30] MEDS ORDERED: MEPERIDINE 25 MG/1 ML INJ IV PRN (16:36)
--- NOTE | 2019-12-30 20:52 | Post Anesthesia Evaluation ---
- Post Anesthesia Evaluation Patient Participated: Yes Airway Patent: Yes Stable Respiratory Function: Yes Nausea/Vomiting: No Temp > 96.8F: Yes Pain Manageable: Yes Adequeate Hydration: Yes Anesthesia Complications: No Block Receding Appropriately: Not Applicable Patient on Ventilator: No
--- NOTE | 2019-12-30 22:16 | Operative Report ---
Operative Report Operative Report: Date of procedure: 12/30/19 Pre-op diagnosis: left lateral abdominal wall soft tissue mass Post-op diagnosis: same Procedure: excision soft tissue mass left lateral abdominal wall Anesthesia: MAC, local Findings: 4 cm lipoma Surgeon: MELISSA ROSAS Estimated blood loss: minimal Pathology: list (soft tissue mass left lateral abdominal wall) Specimen disposition: to lab Condition: stable Hospital course: Pt observed in PACU and discharged in stable condition. HPI and indication: 44 yo F who was seen in the surgery clinic for evaluation of a soft tissue mass on the left lateral abdominal wall. The patient was concerned about the size. Recommendation was to remove the mass. All risks, benefits, alternatives to surgery were discussed with the patient and questions answered. Consent obtained. Procedure in detail: Patient was identified in the preoperative area and brought to the operating room and placed on the operating room table in left lateral decubitus position. After anesthesia was induced, the left lateral abdominal w all was prepped and draped in the usual sterile fashion and a time out performed. Local anesthetic was infiltrated into the skin and subcutaneous tissue and the intended incision site. A transverse elliptical incision was made using a 15 blade and dissection carried down through the skin and subcutaneous tissue using electrocautery. The mass was encountered and circumfrentially dissected free from the surrounding tissue using blunt dissection and electrocautery. Once the mass was completely freed from the underlying tissue, it was removed from the wound. It measured 4 cm, was lobulated and fatty consistent with a lipoma. The wound was irrigated and hemostasis ensured. The deep layer was closed using 3-0 vicryl interrupted sutures. The skin was approximated using 4-0 monocryl subcuticular running stitch and dermabond. After the dermabond was dry, a 4x4 fluff gauze was applied to the incision and secured with a tegaderm. At the end of the case, all sponge, instrument, sharp counts were correct x 2. The patient was awoken from anesthesia and taken to PACU in stable condition.
== END 2019-12-30 11:19 | disposition home or self-care (01) ==
LOC: OR 11:18
PROVIDERS: ATTEND Surgery
DX: R22.2 Localized swelling, mass and lump, trunk (principal); D17.1 Benign lipomatous neoplasm of skin and subcutaneous tissue of trunk; E66.9 Obesity, unspecified; I10 Essential (primary) hypertension; K21.9 Gastro-esophageal reflux disease without esophagitis; Z87.440 Personal history of urinary (tract) infections; Z72.89 Other problems related to lifestyle; Z98.890 Other specified postprocedural states; Z79.899 Other long term (current) drug therapy
CPT/HCPCS: 22903; 36415; 81025; 85014; 85018; 88304; J0690; J1170; J2250; J2704; J7120; 88307